=== PATIENT | female | born 1990 | race Hispanic/Latino ===

== ENCOUNTER 2019-01-02 23:15 | Emergency (ER) | payer OTHER ==
[2019-01-02 23:34] VITALS: RESP 18
[2019-01-02] MEDS ORDERED: Oxycodone/Acetaminophen 5/325 mg Tab PO STA (23:42)
[2019-01-02] MEDS ORDERED: Silver Sulfadiazine 1% Cream (20 gm) TOP STA (23:42)
[2019-01-02] MEDS ORDERED: Silver Sulfadiazine 1% Cream (20 gm) ONE (23:50)
[2019-01-02] MEDS ORDERED: Oxycodone/Acetaminophen 5/325 mg Tab ONE (23:51)
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
[2019-01-03 01:18] VITALS: BP 136/82; PULSE 80; TEMP 97.9
[2019-01-03 03:29] VITALS: O2SAT 97
== END 2019-01-03 01:23 | disposition home or self-care (01) ==
LOC: C.ER 23:15
DX: T23.101A Burn of first degree of right hand, unspecified site, initial encounter (principal); X19.XXXA Contact with other heat and hot substances, initial encounter